=== PATIENT | female | born 1940 | race Caucasian/White ===

== ENCOUNTER 2017-01-16 11:09 | Day surgery (SDC) | payer MEDICARE, OTHER ==
--- NOTE | ~2017-01-16 | EGD ---
EGD REPORT [facility] [address] [address] NAME: BARON PICKERING : 42 STATUS : [facility] PAT#: [id number] AGE: 76 ADM/REG DATE : 01/16/17 MR#: [id number] REPORT SERV DATE: 01/16/17 DICTATED BY: SALMA VANESSA DATE: 01/16/17 REPORT STATUS : Draft TRANSCRIBED BY: [facility] DATE: 01/16/17 Pulmonology Patient Name: Baron Pickering Procedure Date: 01/16/2017 1:19 PM Date of : 1940 Attending MD: BETTINA VANESSA MD Procedure Date No Time: 01/16/2017 Procedure: EBUS/NAVIGATION BRONCHOSCOPY Indications: Bilateral lung lesions, mediastinal adenopathy Providers: BETTINA VANESSA MD Referring MD: СВЕТЛАНА WAGONER MD Medicines: Lidocaine 2% 20 mL Complications: No immediate complications Procedure: Pre-Anesthesia Assessment: - A History and Physical has been performed. Patient meds and allergies have been reviewed. The risks and benefits of the procedure and the sedation options and risks were discussed with the patient. All questions were answered and informed consent was obtained. Patient identification and proposed procedure were verified prior to the procedure by the physician and the nurse in the pre-procedure area in the procedure room. Mental Status Examination: alert and oriented. Respiratory Examination: clear to auscultation. CV Examination: normal and RRR, no murmurs, no S3 or S4. ASA Grade Assessment: III - A patient with severe systemic disease. After reviewing the risks and benefits, the patient was deemed in satisfactory condition to undergo the procedure. The anesthesia plan was to use general anesthesia. Immediately prior to administration of medications, the patient was re-assessed for adequacy to receive sedatives. The heart rate, respiratory rate, oxygen saturations, blood pressure, adequacy of pulmonary ventilation, and response to care were monitored throughout the procedure. The physical status of the patient was re-assessed after the procedure. the Bronchoscope was introduced through the mouth, via the endotracheal tube (the patient was intubated for the procedure) and advanced to the tracheobronchial tree. the BF [id number] was introduced through the mouth, via the endotracheal tube (the patient was intubated for the procedure) and advanced to the tracheobronchial tree. Findings: The endotracheal tube is in good position. The visualized portion of the trachea is of normal caliber. The giovanny is sharp. The tracheobronchial EGD REPORT [address] [address] NAME: BARON PICKERING : [birth year] STATUS : [facility] PAT#: [id number] AGE: 76 ADM/REG DATE : 01/16/17 MR#: [id number] REPORT SERV DATE: 01/16/17 DICTATED BY: SALMA VANESSA DATE: 01/16/17 REPORT STATUS : Draft TRANSCRIBED BY: [employer] [facility] DATE: 01/16/17 tree was examined to at least the first subsegmental level. Bronchial mucosa and anatomy are normal; there are no endobronchial lesions, and no secretions. EBUS TBNA of lymph node level 7 x 4 passes for cytology EBUS TBNA of lymph node level 4R x 4 passes for cytology EBUS TBNA of lymph node level 11R x 4 passes for cytology Using SuperDimension Edge catheter 180, peripheral probe EBUS 17s, and fluoroscopy, I performed the following biopsies: FIRST SITE RUL lung nodule transbronchial needle aspirates x 5 passes for cytology RUL lung nodule transbronchial brush biopsy x 1 pass for cytology RUL lung nodule transbronchial forcep biopsies x 4 passes for histopathology SECOND SITE NICHOL lung nodule transbronchial needle aspirates x 6 passes for cytology NICHOL lung nodule transbronchial brush biopsy x 2 pass for cytology NICHOL lung nodule transbronchial forcep biopsies x 8 passes for histopathology Bronchoalveolar lavage was performed in the lung and sent for routine cytology. 180 mL of fluid were instilled. 20 mL were returned. The return was blood-tinged and cellular. 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 Recommendation: - Await test results. - Chest X-ray post-procedure. - PET scan. - MRI of the brain with and without contrast - Complete pulmonary function tests to assess operability. - Refer to/consult with Thoracic Surgery. Attending Participation: I personally performed the entire procedure. BETTINA VANESSA MD 01/16/2017 2:56 PM This report has been signed electronically. Number of Addenda: 0 Note Initiated On: 01/16/2017 1:19 PM [address] [address]
--- NOTE | ~2017-01-16 | CN ---
Consultation Report [facility] [address] [place]. [address] NAME: BARON PICKERING : 42 STATUS : [facility] PAT#: [id number] AGE: 76 ADM/REG DATE : 01/16/17 MR#: [id number] REPORT SERV DATE: 01/16/17 DICTATED BY: PHI VANESSA DATE: 01/16/17 REPORT STATUS : Draft TRANSCRIBED BY: MODL DATE: 01/16/17 CONSULTATION REPORT DATE OF CONSULTATION: Dear Dr. Bedoya: Thank you for requesting my opinion regarding evaluation and management of Ms. Baron Pickering's multiple lung nodules and mediastinal lymphadenopathy. Ms. Pickering is an extremely pleasant female with a significant past medical history of heavy tobacco abuse, COPD, history of left pneumothorax, and chronic cough who presents to [facility] with an abnormal CT scan. The patient was in her usual state of health and developed upper respiratory symptoms and has had some bloody sinus drainage. The patient states that she has chronic shortness of breath, well localized to the chest, nonradiating, moderate in nature, especially with exertion with no significant alleviating or exacerbating factors. The patient underwent a lung cancer screening test and subsequent CT scan of the chest on 12/14/2016 demonstrated multiple lung nodules, highly suspicious for malignancy. She has been sent here for fast track for EBUS and navigation bronchoscopy. REVIEW OF SYSTEMS: A detailed 14-point review of systems was completed. Pertinent positives and negatives are listed above. PAST MEDICAL HISTORY: 1. Essential hypertension. 2. Peripheral vascular disease. 3. Cough. 4. Anemia. 5. Osteoporosis. 6. COPD. 7. Hypertension. 8. Hyperlipidemia. 9. Headache. 10.Left pneumothorax. 11.Allergic rhinitis. 12.Hyperlipidemia. 13.Hearing loss. 14.Peptic ulcer disease. 15.Osteoporosis. 16.History of colonic polyps. PAST SURGICAL HISTORY: Hysterectomy. ALLERGIES: REVIEWED AND LOCATED IN THE PAPER CHART. Consultation Report [facility] [address] [place]. [address] NAME: BARON PICKERING : 42 STATUS : [facility] PAT#: [id number] AGE: 76 ADM/REG DATE : 01/16/17 MR#: [id number] REPORT SERV DATE: 01/16/17 DICTATED BY: PHI VANESSA DATE: 01/16/17 REPORT STATUS : Draft TRANSCRIBED BY: YAMIL DATE: 01/16/17 MEDICATIONS: Reviewed and located in the paper chart. SOCIAL HISTORY: The patient is a former smoker of at least 50 pack years. She is . She retired in 2005. She smokes one pack per day, and she has a regular secondhand smoke exposure. She lives in a house with two sisters. FAMILY HISTORY: Dementia, colon cancer, melanoma, heart failure, osteoarthritis, melanoma of the skin, and rheumatoid arthritis. PHYSICAL EXAMINATION: VITAL SIGNS: Reviewed and located in the paper chart. GENERAL: In no acute distress. Able to communicate in full paragraphs at a time. HEENT: Normocephalic and atraumatic. Pupils are equal, round, and reactive to light and accommodation. Posterior oropharynx is clear. NECK: No JVD. No LAD. Trachea midline. CARDIOVASCULAR: Regular rate and rhythm. S1 and S2 present. LUNGS: Coarse bilateral breath sounds. End-expiratory wheezes are noted. ABDOMEN: Nontender, nondistended, and soft. Positive bowel sounds. EXTREMITIES: No clubbing, cyanosis, or edema. SKIN: No new rashes, lesions, or ulcers. PSYCHIATRIC: Alert and oriented x3. Appropriate mood and affect. Appropriate insight and judgment. NEUROLOGIC: 5/5 strength in upper and lower extremities. Cranial nerves II through XII intact. Gait not tested. DTRs not performed. IMAGING: CT scan of the chest performed at [facility] was personally reviewed by me. A 2.4 x 2.5 cm right upper lobe lung lesion with pathologic right hilar and mediastinal lymphadenopathy most consistent with malignancy. There are biapical solid lung nodules with cavitary lung nodule in the left upper lobe, which may represent metastatic foci, but it could conceivably represent a mycetoma. ASSESSMENT AND PLAN: Ms Baron Pickering is an extremely pleasant female with a significant past medical history of heavy tobacco abuse and chronic obstructive pulmonary disease who presents to [facility] with an abnormal CT screen. CT scan of the chest demonstrated a 2.5 x 2.4 cm right upper lobe lung lesion with pathologic appearing mediastinal lymphadenopathy. There is also a contralateral left upper lobe cavitary lung lesion that could represent metastatic foci and alternate primary or mycetoma. At this point, we agreed that Ms. Pickering needs to proceed forward with a biopsy. I did discuss in detail other potential options other than EBUS and navigation bronchoscopy including CT-guided needle biopsy, thoracic surgical biopsy, or continued observation after careful discussion of the risks, benefits, and alternatives to each of these procedures, we agreed to proceed forward with EBUS and navigation bronchoscopy. The patient is aware that the procedure is associated with potential life-threatening risks, including lung collapse, respiratory failure, and even . Consultation Report [place] [address] [place]. [address] NAME: BARON PICKERING : 42 STATUS : [facility] PAT#: [id number] AGE: 76 ADM/REG DATE : 01/16/17 MR#: [id number] REPORT SERV DATE: 01/16/17 DICTATED BY: PHI VANESSA DATE: 01/16/17 REPORT STATUS : Draft TRANSCRIBED BY: YAMIL DATE: 01/16/17 RECOMMENDATIONS: A summary of my recommendations are as follows: 1. Proceed with EBUS and navigation bronchoscopy. 2. The patient had consented to lung vision trial for 3D fluoro. 3. The patient will follow up with Dr. Annabelle Carrasoc. 4. See further recommendations on operative note. Thank you for allowing me to participate in Ms. Baron Pickering's care. RICCARDO/YAMIL Phi Vanessa M.D. / [id number] CC: Jaimee Llamas M.D.
[~2017-01-16 11:09] MED LIST: ACET500CAP PO; ADVIL PO; CALTRA600D PO; FISH-EPA1000 MG PO; LORTAB 5 PO; METHOC500B PO; MOBIC15 MG PO; PRIN10 PO; VITAMIN D400 UNI1 PO; ZANTAC 150 PO; [UNRECOGNIZED DRUG - OTHER] PO
[2017-01-16 11:58] LABS: BASOPHILS 0.4 %; BASOPHILS ABSOLUTE 0.03 10/3/uL (0.0-0.16); EOSINOPHILS 0.8 %; EOSINOPHILS ABSOLUTE 0.06 10/3/uL (0.0-0.53); HEMATOCRIT 39.5 % (36.0-48.0); HEMOGLOBIN 12.9 g/dL (12.0-16.0); IMMATURE GRANULOCYTES 0.3 %; IMMATURE GRANULOCYTES ABSOLUTE 0.02 10/3/uL (0.0-0.11); LYMPHOCYTES 23.5 %; LYMPHOCYTES ABSOLUTE 1.82 10/3/uL (0.67-4.30); MEAN CORPUS HGB CONC 32.7 g/dL (32.0-36.0); MEAN CORPUSCULAR HEMOGLOB 31.2 pg (26.0-34.0); MEAN CORPUSCULAR VOLUME 95.6 fL (80-100); MEAN PLATELET VOLUME 9.4 fL (9.2-13.0); MONOCYTES 6.1 %; MONOCYTES ABSOLUTE 0.47 10/3/uL (0.21-1.20); NEUTROPHILS 68.9 %; NEUTROPHILS ABSOLUTE 5.36 10/3/uL (2.02-8.40); PLATELET COUNT 261 10/3/uL (150-400); RBC DISTRIBUTION WIDTH 12.3 % (12.0-16.0); RED CELL COUNT 4.13 10/6/uL (4.0-5.6); WHITE BLOOD CELLS 7.8 10/3/uL (4.5-10.5)
[2017-01-16 12:01] LABS: MANUAL DIFF NO %
[2017-01-16 12:06] LABS: PROTIME (NOT ORD) 13.2 SEC (12.0-14.5)
[2017-01-16 12:07] LABS: PARTIAL THROMBO TIME 31.7 SEC (22.5-37.2)
[2017-01-16 12:08] LABS: BUN (BLOOD UREA NITROGEN) 16 MG/DL (6-23); CALCIUM, SERUM 9.4 MG/DL (8.5-10.4); CHLORIDE, SERUM 107 MMOL/L (96-112); CO2 (CARBON DIOXIDE) 30 MMOL/L (24-34); CREATININE 0.76 MG/DL (0.55-1.02); GFR AFRICAN AMERICAN 89 ML/MIN (>=60); GFR NON AFRICAN AMERICAN 77 ML/MIN (>=60); POTASSIUM, SERUM 4.6 MMOL/L (3.5-5.3); SODIUM, SERUM 144 MMOL/L (135-148)
[2017-01-16 12:09] LABS: GLUCOSE, SERUM 107 MG/DL (60-99)
[2017-01-16 17:05] LABS: BD FL LYMPH (NOT ORD) 11 %; BF BASO (NOT OF) 0 %; BF LARGE MONONUCLEAR 51 %; BODY FLUID EOS (NOT ORD) 0 %; BODY FLUID SEG (NOT ORD) 38 %
[2017-01-16 17:06] LABS: BD FL SOURCE (NOT ORD) LUL BAL; BF TOTAL CELL CT (NOT ORD 69 /MM3; BODY FLUID RBC (NOT ORD) 3000 /MM3
[2017-01-16 17:07] LABS: BD FL LYMPH (NOT ORD) 21 %; BD FL SOURCE (NOT ORD) BAL--RUL; BF BASO (NOT OF) 0 %; BF LARGE MONONUCLEAR 64 %; BF TOTAL CELL CT (NOT ORD 82 /MM3; BODY FLUID EOS (NOT ORD) 0 %; BODY FLUID RBC (NOT ORD) 23000 /MM3; BODY FLUID SEG (NOT ORD) 15 %
== END 2017-01-16 17:47 | disposition home or self-care (01) ==
LOC: DMU 11:09
PROVIDERS: Anesthesiology; Internal Medicine
PROC: 07B74ZX Excision of Thorax Lymphatic, Percutaneous Endoscopic Approach, Diagnostic (ICD-10-PCS; principal; 2017-01-16 13:33)
PROC: 0BBC8ZX Excision of Right Upper Lung Lobe, Via Natural or Artificial Opening Endoscopic, Diagnostic (ICD-10-PCS; 2017-01-16 14:00)
PROC: 0BBG8ZX Excision of Left Upper Lung Lobe, Via Natural or Artificial Opening Endoscopic, Diagnostic (ICD-10-PCS; 2017-01-16 14:00)
PROC: 0B9C8ZX Drainage of Right Upper Lung Lobe, Via Natural or Artificial Opening Endoscopic, Diagnostic (ICD-10-PCS; 2017-01-16 14:00)
PROC: 0B9G8ZX Drainage of Left Upper Lung Lobe, Via Natural or Artificial Opening Endoscopic, Diagnostic (ICD-10-PCS; 2017-01-16 14:00)
DX: C34.11 Malignant neoplasm of upper lobe, right bronchus or lung (principal); C77.1 Secondary and unspecified malignant neoplasm of intrathoracic lymph nodes; I10 Essential (primary) hypertension; I73.9 Peripheral vascular disease, unspecified; E78.5 Hyperlipidemia, unspecified; J44.9 Chronic obstructive pulmonary disease, unspecified; K27.9 Peptic ulcer, site unspecified, unspecified as acute or chronic, without hemorrhage or perforation; M81.0 Age-related osteoporosis without current pathological fracture; H91.90 Unspecified hearing loss, unspecified ear; Z88.5 Allergy status to narcotic agent; Z88.0 Allergy status to penicillin; Z79.899 Other long term (current) drug therapy; Z87.09 Personal history of other diseases of the respiratory system; Z87.891 Personal history of nicotine dependence; Z86.010 Personal history of colon polyps; Z90.710 Acquired absence of both cervix and uterus; Z80.0 Family history of malignant neoplasm of digestive organs; Z82.49 Family history of ischemic heart disease and other diseases of the circulatory system; Z81.8 Family history of other mental and behavioral disorders; Z82.61 Family history of arthritis
CPT/HCPCS: 71010; 80048; 85025; 85610; 85730; 87015; 87070; 87102; 87116; 87205; 88112; 88172; 88173; 88305; 88333; 89051; 93005; C1725; C1769; J2370; J2405; J2710; J3010